=== PATIENT | female | born 1965 | race Caucasian/White ===

== ENCOUNTER → 2020-02-10 12:11 | Outpatient (CLI) | payer OTHER, SELFPAY ==
--- NOTE | ~2020-02-10 | US_ITS ---
EXAMINATION: US thyroid DATE: 02/10/2020 12:40 INDICATION: Thyroid nodules TECHNIQUE: Multiple ultrasound images of the thyroid were obtained. COMPARISON: 02/07/2019 FINDINGS: The right thyroid lobe measures 4.3 x 2.1 x 1.9 cm. No significant interval change in a 2.2 x 1.2 x 1 .5 cm wider than tall, heterogeneously hypoechoic solid mass with lobular margins and without interna l echogenic foci in the superior right thyroid lobe (TI-RADS 4, moderately suspicious , FNA if >=1.5 cm, annual followup is >1 cm). The left thyroid is reportedly surgically absent with no evident thyro id tissue identified at the left thyroid fossa. IMPRESSION: 1. No significant interval change in a 2.2 cm TI-RADS 4 nodule in the superior right thyroid lobe for which ultrasound-guided fine-needle aspiration would be recommended. Reviewed, dictated and finalized at location A.
== END ==
DX: E07.9 Disorder of thyroid, unspecified (principal)
CPT/HCPCS: 76536

== ENCOUNTER → 2020-02-21 11:12 | Outpatient (CLI) | payer OTHER, SELFPAY ==
--- NOTE | ~2020-02-21 | MR_ITS ---
EXAMINATION: MR knee RT wo con DATE: 02/21/2020 12:06 INDICATION: Medial right knee pain. TECHNIQUE: Magnetic resonance imaging (MRI) of the right knee was performed without intravenous contr ast. Sequences included axial PD-weighted FS FSE, coronal PD-weighted FSE and PD-weighted FS FSE, sag ittal PD-weighted FSE, and sagittal T2-weighted FS FSE. COMPARISON: None. FINDINGS: Medial compartment: Medial meniscus is normal. There is cartilage surface irregularity of tibial condyle. There is partia l-thickness cartilage loss of femoral condyle, deep at the central articular surface where there is m ild subchondral edema-like marrow signal intensity. Marginal osteophytes are noted. Lateral compartment: Lateral meniscus is intact. There is deep partial thickness cartilage loss of tibial condyle involvin g the central and medial articular surface with mild subchondral edema-like marrow signal intensity a nd a subchondral cyst. There is deep partial thickness cartilage loss of femoral condyle involving th e central articular surface. Marginal osteophytes are noted. Patellofemoral compartment: There is near full-thickness cartilage loss of patellar lateral facet with mild subchondral edema-lik e marrow signal intensity. There is deep partial-thickness cartilage loss of medial ridge and medial facet. There is partial-thickness cartilage loss of trochlea, deep at the central and lateral articul ar surface. Marginal osteophytes are noted. Ligaments and tendons: The anterior and posterior cruciate ligaments are normal. Medial collateral ligament and lateral adriano ateral ligament complex are intact. There is mild patellar tendinopathy. Fluid: There is a small knee joint effusion. There is mild superficial infrapatellar bursitis. IMPRESSION: 1. Moderate tricompartmental chondrosis. 2. Small knee joint effusion. Reviewed, dictated and finalized at location A.
== END ==
DX: M17.11 Unilateral primary osteoarthritis, right knee (principal); M25.461 Effusion, right knee
CPT/HCPCS: 73721

== ENCOUNTER → 2021-02-05 07:40 | Outpatient (CLI) | payer OTHER, SELFPAY ==
--- NOTE | ~2021-02-05 | MR_ITS ---
EXAMINATION: MR knee RT wo con DATE: 02/05/2021 08:29 INDICATION: Acute right knee pain. TECHNIQUE: Magnetic resonance imaging (MRI) of the right knee was performed without intravenous contr ast. Sequences included axial PD-weighted FS FSE, coronal PD-weighted FSE and PD-weighted FS FSE, sag ittal PD-weighted FSE, and sagittal T2-weighted FS FSE. COMPARISON: Brain MRI 02/21/2020 FINDINGS: Medial compartment: Medial meniscus is normal. There is diffuse partial thickness cartilage loss of femoral condyle, deep at the central articular surface where there is a small subchondral cyst. There is shallow partial-t hickness cartilage loss of tibial condyle. Osteophytes are noted. Lateral compartment: Lateral meniscus is normal. There is partial-thickness cartilage loss of femoral condyle, deep at the central and posterior articular surface. There is partial-thickness cartilage loss of tibial condyle , deep at the central and posterior articular surface. Osteophytes are noted. Patellofemoral compartment: There is full-thickness cartilage loss of patellar medial and lateral facets with mild subchondral ed gómez-like signal intensity. There is full-thickness loss of lateral trochlea and partial thickness car tilage loss of central and medial trochlea. Osteophytes are noted. Ligaments and tendons: The anterior and posterior cruciate ligaments are normal. Medial collateral ligament is normal. There are changes of prior sprain of fibular collateral ligament characterized by increased signal intensi ty proximally. There is mild patellar tendinopathy. Fluid: There is a moderate-sized knee joint effusion. There is trace fluid in a Reyes's cyst. There is mild superficial infrapatellar bursitis. IMPRESSION: 1. Severe chondrosis of patellofemoral compartment and mild chondrosis of medial and lateral compartm ents. 2. Moderate-sized knee joint effusion. Reviewed, dictated and finalized at location A. UCTION POTTER IMPRESSION: 1. Severe chondrosis of patellofemoral compartment and mild chondrosis of media l and lateral compartments. 2. Moderate-sized knee joint effusion.
== END ==
PROVIDERS: Visit Provider Specialist
DX: M25.461 Effusion, right knee (principal)
CPT/HCPCS: 73721

== ENCOUNTER → 2021-03-31 11:24 | Outpatient (CLI) | payer OTHER, SELFPAY ==
--- NOTE | ~2021-03-31 | US_ITS ---
EXAMINATION: US thyroid DATE: 03/31/2021 11:41 INDICATION: Thyroid mass post prior left thyroidectomy TECHNIQUE: Multiple ultrasound images of the thyroid were obtained. COMPARISON: None. FINDINGS: The right thyroid lobe measures 3.5 x 2.0 x 1.4 cm. The left thyroid lobe is not visualized and repo rtedly surgically absent. No abnormal soft tissue in the left thyroid fossa. No significant interval change in a 2.1 cm wider than tall isoechoic nodule with ill-defined margins and coarse shadowing sarabjit cification (TI-RADS 4, moderately suspicious , FNA if >=1.5 cm, annual followup is >=1 cm). IMPRESSION: 1. 2.1 cm TI RADS 4 right thyroid nodule. By TI RADS criteria ultrasound-guided fine-needle aspiratio n would be recommended. The nodule has however remain unchanged since 04/10/2016 which favors a benign etiology and could consider continued follow-up. Reviewed, dictated and finalized at location A. IMPRESSION: 1. 2.1 cm TI RADS 4 right thyroid nodule. By TI RADS criteria ultrasound-guided fine-needle aspiration would be recommended. The nodule has however remain unc hanged since 04/10/2016 which favors a benign etiology and could consider contin ued follow-up.
== END ==
DX: E07.9 Disorder of thyroid, unspecified (principal)
CPT/HCPCS: 76536

== ENCOUNTER → 2022-07-04 11:13 | Outpatient (CLI) | payer OTHER, SELFPAY ==
--- NOTE | ~2022-07-04 | US_ITS ---
EXAMINATION: US thyroid DATE: 07/04/2022 11:33 INDICATION: Thyroid nodule. TECHNIQUE: Multiple ultrasound images of the thyroid were obtained. COMPARISON: Ultrasound 04/07/2016, 03/31/2021 FINDINGS: The right thyroid lobe measures 4.0 x 1.9 x 1.5 cm. The left thyroid lobe is absent. In the right th yroid lobe, there is a 1.9 cm solid, hypoechoic, wider than tall nodule with ill-defined margin and m acrocalcification (TI-RADS TR4). IMPRESSION: 1. Right thyroid nodule, stable from 04/07/2016, likely benign. 2. Left hemithyroidectomy. Reviewed, dictated and finalized at location A.
== END ==
PROVIDERS: PCP Family Medicine
DX: E04.1 Nontoxic single thyroid nodule (principal)
CPT/HCPCS: 76536

== ENCOUNTER 2022-11-22 10:04 | Outpatient (CLI) | payer OTHER, SELFPAY ==
[2022-11-22 18:31] LABS: Alanine Aminotransferase 23 U/L (6-35); Albumin Level 4.1 g/dL (3.5-5.1); Alkaline Phosphatase 52 U/L (38-126); Anion Gap 4 mmol/L (8-16); Aspartate Amino Transferase 28 U/L (14-36); Bilirubin,Total 0.7 mg/dL (0.2-1.3); Blood Urea Nitrogen 16 mg/dL (7-17); Calcium 8.7 mg/dL (8.4-10.2); Carbon Dioxide 30 mmol/L (22-30); Chloride 107 mmol/L (98-107); Estimated Glomerular Filt Rate > 60; Glucose 83 mg/dL (65-110); Potassium 3.7 mmol/L (3.4-5.0); Sodium 141 mmol/L (137-145)
[2022-11-22 19:29] LABS: Hematocrit 36.7 % (37.0-47.0); Mean Corpuscular HGB Conc 32.7 g/dl (32-36); Mean Corpuscular Hemoglobin 30.6 pg (26-34); Mean Corpuscular Volume 93.6 fl (80-100); Mean Platelet Volume 10.8 fl (7.4-10.4); Platelet Count Result 219 k/mm3 (150-375); Red Blood Count 3.92 M/mm3 (4.2-5.4); Red Cell Distribution Width 12.5 % (11.5-14.5); White Blood Count 5.1 K/mm3 (4.5-10.0)
== END 2022-11-22 10:05 | disposition home or self-care (01) ==
LOC: ANHGOSHLAB 10:05
PROVIDERS: PCP Family Medicine; Visit Provider Family Medicine
DX: Z01.818 Encounter for other preprocedural examination (principal)
CPT/HCPCS: 36415; 80053; 85027